=== PATIENT | female | born 1940 | race Caucasian/White ===

== ENCOUNTER 2018-06-06 08:42 | Inpatient (IN) | payer OTHER ==
[~2018-06-06 08:42] MED LIST: CEFAZOLIN 1 GM INJ
[2018-06-06] MEDS ORDERED: NALOXONE (0.4 MG/ML) INJ IV (09:00)
[2018-06-06] MEDS ORDERED: NA PHOSPHATE/BIPHOS 133 ML ENEMA PR (09:00)
[2018-06-06] MEDS ORDERED: oxyCODONE 5 MG TAB PO ×2 (09:00)
[2018-06-06] MEDS ORDERED: DIPHENHYDRAMINE 50 MG INJ IV ×2 (09:00→12:00)
[2018-06-06] MEDS ORDERED: BETHANECHOL 25 MG TAB PO (09:00)
[2018-06-06] MEDS ORDERED: BISACODYL 10 MG SUPP PR (09:00)
[2018-06-06] MEDS ORDERED: MAGNESIUM HYDROXIDE 30ML CUP PO (09:00)
[2018-06-06] MEDS ORDERED: SENNA/DOCUSATE NA (8.6MG/50MG) TAB PO (09:00)
[2018-06-06] MEDS ORDERED: BUPIVACAINE 0.75%/DEXT (SPINAL) 2 ML INJ (11:46)
[2018-06-06] MEDS ORDERED: FENTAnyl 50 MCG/ML VIAL (11:46)
[2018-06-06] MEDS ORDERED: PROPOFOL 20 ML ×2 (11:46→13:02)
[2018-06-06] MEDS ORDERED: LIDOCAINE 2% (SDV) 5 ML INJ (11:46)
[2018-06-06] MEDS ORDERED: MIDAZOLAM 1 MG/ML 2 ML INJ (11:47)
[2018-06-06] MEDS ORDERED: MEPERIDINE 25 MG INJ IV (12:00)
[2018-06-06] MEDS ORDERED: HYDROmorphONE 1 MG/5 ML IV SYRINGE IV (12:00)
[2018-06-06] MEDS ORDERED: PROCHLORPERAZINE 10 MG INJ IV (12:00)
[2018-06-06] MEDS ORDERED: ONDANSETRON 4 MG INJ IV (12:00)
[2018-06-06] MEDS: TRANEXAMIC ACID 1,000 MG in SOD CHLORIDE 0.9% 100 ML IVPB ×2 (12:00→13:00)
[2018-06-06] MEDS ORDERED: FENTAnyl 50 MCG/ML VIAL IV (12:00)
[2018-06-06] MEDS ORDERED: POLYMYXIN B 500000 UNIT INJ (12:08)
[2018-06-06] MEDS ORDERED: ONDANSETRON 4 MG INJ (12:23)
[2018-06-06] MEDS ORDERED: DEXAMETHASONE 4 MG/ML 1 ML INJ (12:23)
[2018-06-06] MEDS ORDERED: FAMOTIDINE 20 MG INJ (12:23)
[2018-06-06] MEDS: BACITRACIN 50000 UNITS INJ (12:27)
[2018-06-06] MEDS: POLYMYXIN B 500000 UNIT INJ (12:28)
[2018-06-06] MEDS ORDERED: EPHEDrine SULFATE 50 MG/5 ML SYG (12:31)
[2018-06-06] MEDS ORDERED: LABETALOL HCL 20MG INJ (14:01)
[2018-06-06] MEDS: LABETALOL HCL 20MG INJ IV (14:09)
[2018-06-06] MEDS: ONDANSETRON 4 MG INJ IV ×2 (14:12→20:23)
[2018-06-06] MEDS: ASPIRIN (EC) 325 MG TAB PO (14:12)
[2018-06-06] MEDS: DOCUSATE SODIUM 100 MG CAP PO (14:12)
[2018-06-06] MEDS: CEFAZOLIN 1 GM/50 ML (PMX) 50 ML IVPB ×2 (14:13→20:23)
[2018-06-06] MEDS: CEFAZOLIN 2 GM/50 ML (PMX) 50 ML (FOR WT < 120 KG) IVPB (14:13)
[2018-06-06] MEDS ORDERED: hydrALAzine 20 MG INJ IV (14:30)
[2018-06-06] MEDS: SOD CHLORIDE 0.9% 1,000 ML IV ×2 (15:48→21:26)
[2018-06-06] MEDS: CELECOXIB 100 MG CAP PO ×2 (15:54→21:46)
[2018-06-06] MEDS: GABAPENTIN 100 MG CAP PO ×3 (15:55→21:46)
[2018-06-06] MEDS: LISINOPRIL 20 MG TAB PO (16:37)
[2018-06-06] MEDS: oxyCODONE 5 MG TAB PO (21:46)
[2018-06-07] MEDS: ONDANSETRON 4 MG INJ IV ×2 (02:00→08:00)
[2018-06-07 05:07] LABS: ADD MAN DIFF? NO; BASOPHILS % 0.5 % (0.0-2.0); EOSINOPHILS % 0.2 % (0.0-7.0); HEMATOCRIT 35.3 % (37.0-47.0); HEMOGLOBIN 11.9 g/dl (12.0-16.0); LYMPHOCYTES # 1.3 10^3/ul (0.8-2.9); MEAN CORPUSCULAR HEMOGLOBIN 30.3 pg (29.0-33.0); MEAN CORPUSCULAR HGB CONC 33.7 g/dl (32.0-37.0); MEAN CORPUSCULAR VOLUME 89.8 fl (82.0-101.0); MEAN PLATELET VOLUME 10.4 fl (7.4-10.4); MONOCYTE # 0.5 10^3/ul (0.3-0.9); MONOCYTES % 6.1 % (0.0-11.0); NEUTROPHIL # 6.6 10^3/ul (1.6-7.5); NEUTROPHILS % 77.6 % (39.0-77.0); PLATELET COUNT 167 10^3/UL (140-415); RED BLOOD COUNT 3.93 10^6/ul (4.20-5.40); RED CELL DISTRIBUTION WIDTH 13.9 % (11.5-14.5)
[2018-06-07 05:07] LABS: WHITE BLOOD COUNT 8.5 10^3/ul (4.8-10.8)
[2018-06-07 05:26] LABS: MAGNESIUM 1.7 mg/dl (1.7-2.5)
[2018-06-07 05:26] LABS: PHOSPHORUS 4.3 mg/dl (2.5-4.9)
[2018-06-07] MEDS: CEFAZOLIN 1 GM/50 ML (PMX) 50 ML IVPB (05:27)
[2018-06-07] MEDS: SOD CHLORIDE 0.9% 1,000 ML IV ×2 (05:27→22:26)
[2018-06-07 05:28] LABS: ANION GAP 14 (8-16); BLOOD UREA NITROGEN 13 mg/dl (7-20); CALCIUM 8.6 mg/dl (8.4-10.2); CARBON DIOXIDE 24 mmol/L (21-31); CHLORIDE 107 mmol/L (97-110); CREATININE 0.65 mg/dl (0.44-1.00); GLUCOSE 111 mg/dl (70-220); POTASSIUM 4.2 mmol/L (3.5-5.1); SODIUM 141 mmol/L (135-144)
[2018-06-07] MEDS: LISINOPRIL 20 MG TAB PO (09:33)
[2018-06-07] MEDS: ASPIRIN (EC) 325 MG TAB PO (09:33)
[2018-06-07] MEDS: oxyCODONE 5 MG TAB PO ×2 (09:33→18:51)
[2018-06-07] MEDS: DOCUSATE SODIUM 100 MG CAP PO ×2 (09:33→20:30)
[2018-06-07] MEDS: CELECOXIB 100 MG CAP PO ×2 (09:33→20:30)
[2018-06-07] MEDS: FERROUS FUMARATE (SR) TAB PO ×2 (09:33→20:30)
[2018-06-07] MEDS: GABAPENTIN 100 MG CAP PO ×2 (09:33→20:30)
[2018-06-08 05:32] LABS: ADD MAN DIFF? NO; BASOPHIL # 0.1 10^3/ul (0.0-0.1); BASOPHILS % 0.6 % (0.0-2.0); EOSINOPHILS # 0.3 10^3/ul (0.0-0.5); EOSINOPHILS % 3.8 % (0.0-7.0); HEMATOCRIT 36.4 % (37.0-47.0); HEMOGLOBIN 12.1 g/dl (12.0-16.0); LYMPHOCYTES # 1.3 10^3/ul (0.8-2.9); LYMPHOCYTES % 16.6 % (15.0-51.0); MEAN CORPUSCULAR HEMOGLOBIN 29.8 pg (29.0-33.0); MEAN CORPUSCULAR HGB CONC 33.2 g/dl (32.0-37.0); MEAN CORPUSCULAR VOLUME 89.7 fl (82.0-101.0); MEAN PLATELET VOLUME 10.5 fl (7.4-10.4); MONOCYTE # 0.5 10^3/ul (0.3-0.9); MONOCYTES % 5.8 % (0.0-11.0); NEUTROPHIL # 5.7 10^3/ul (1.6-7.5); NEUTROPHILS % 72.4 % (39.0-77.0); PLATELET COUNT 156 10^3/UL (140-415); RED BLOOD COUNT 4.06 10^6/ul (4.20-5.40)
[2018-06-08 05:32] LABS: WHITE BLOOD COUNT 7.8 10^3/ul (4.8-10.8)
[2018-06-08 06:01] LABS: ANION GAP 12 (8-16); BLOOD UREA NITROGEN 14 mg/dl (7-20); CALCIUM 8.6 mg/dl (8.4-10.2); CARBON DIOXIDE 25 mmol/L (21-31); CHLORIDE 106 mmol/L (97-110); CREATININE 0.71 mg/dl (0.44-1.00); GLUCOSE 120 mg/dl (70-220); SODIUM 139 mmol/L (135-144)
[2018-06-08 06:02] LABS: PHOSPHORUS 3.3 mg/dl (2.5-4.9)
[2018-06-08 06:02] LABS: MAGNESIUM 1.7 mg/dl (1.7-2.5)
[2018-06-08] MEDS: PANTOPRAZOLE (EC) 40 MG TAB PO (06:03)
[2018-06-08] MEDS: LISINOPRIL 20 MG TAB PO (07:59)
[2018-06-08] MEDS: oxyCODONE 5 MG TAB PO ×3 (08:02→17:50)
[2018-06-08] MEDS: hydrALAzine 20 MG INJ IV ×2 (08:17→17:46)
[2018-06-08] MEDS: DOCUSATE SODIUM 100 MG CAP PO (09:21)
[2018-06-08] MEDS: CELECOXIB 100 MG CAP PO (09:21)
[2018-06-08] MEDS: FERROUS FUMARATE (SR) TAB PO (09:21)
[2018-06-08] MEDS: ASPIRIN (EC) 325 MG TAB PO (09:21)
[2018-06-08] MEDS: GABAPENTIN 100 MG CAP PO (09:21)
[2018-06-08] MEDS: SOD CHLORIDE 0.9% 1,000 ML IV (10:56)
== END 2018-06-08 18:45 | DRG 470 ==
LOC: REC 08:42 → MS1 15:25
PROC: 0SRD0J9 Replacement of Left Knee Joint with Synthetic Substitute, Cemented, Open Approach (ICD-10-PCS; principal; 2018-06-06 11:30)
DX: M17.12 Unilateral primary osteoarthritis, left knee (principal); Z68.41 Body mass index [BMI] 40.0-44.9, adult; I10 Essential (primary) hypertension; E78.5 Hyperlipidemia, unspecified; E66.01 Morbid (severe) obesity due to excess calories; H91.90 Unspecified hearing loss, unspecified ear
CPT/HCPCS: 71045; 73560; 80048; 83735; 84100; 85025; 86850; 86900; 86901; 87081; 88304; 88311; 97116; 97161; 97166; 97530